=== PATIENT | male | born 2000 | race Hispanic/Latino ===

== ENCOUNTER 2023-09-26 00:33 | Emergency (ER) | payer BC, OTHER ==
[2023-09-26] MEDS ORDERED: PROPOFOL 0 ML ONE (01:47)
[2023-09-26] MEDS ORDERED: fentaNYL 50 mcg/mL 1 mL Vial ONE ×2 (01:47→02:27)
[2023-09-26] MEDS ORDERED: PROPOFOL 20 ML ONE (02:32)
== END 2023-09-26 04:40 | disposition home or self-care (01) ==
LOC: ERS 00:33
DX: S53.125A Posterior dislocation of left ulnohumeral joint, initial encounter (principal); V28.49XA Other motorcycle driver injured in noncollision transport accident in traffic accident, initial encounter
CPT/HCPCS: 24600; 96374; 99152; G0390; J2704; J3010